=== PATIENT | male | born 1965 | race African-American/Black ===

== ENCOUNTER 2016-11-13 08:16 | Observation (INO) | payer OTHER ==
[~2016-11-13] VITALS: Ht 188 cm; Wt 110.4 kg
[~2016-11-13 08:16] MED LIST: ABREVA2 GM TP; ADULT LOW DOSE81 M1 PO; AMLODIPINE BESY10 MG PO; AMOXICILLIN500 M1 PO; ASPIR-TRIN325 M1 PO; Amoxicillin PO; BLOOD PRESSURE MEDS; CATAPRES0.2 MG PO; CLONIDINE HCL0.1 MG PO; CLONIDINE HCL0.2 MG PO; Cardizem CD,Cartia X PO; DOXEPIN HCL50 MG PO; DUONEB3 ML IH; ENDOCET 5-3251 EACH PO; Folvite PO; HABITROL,NICODE21 MG TD; HYDRALAZINE HCL25 MG PO; HYDROCHLOROTH12.5 M3 PO; HYDRODIURIL,O12.5 M2 PO; HYDROXYZINE HCL25 M1 PO; Habitrol,Nicoderm CQ TD; Hydrochlorothiazide PO; KEFLEX500 MG PO; LISINOPRIL-HCT1 EACH PO; LOPRESSOR100 M1 PO; Lisinopril PO; MICONAZOLE NITR30 GM TP; MICROZIDE12.5 M1 PO; MOBIC15 MG PO; NEOSPORIN + P14.2 GM TP; NIFEDIPINE ER30 MG PO; NOHOMEMEDS; NORVASC10 MG PO; NORVASC5 MG PO; PERCOCET 5/31 TABLET PO; PRINZIDE 20-121 EACH PO; PROAIR HFA8.5 GM IH; THIAMINE,VITAM100 MG PO; TRAMADOL HCL50 MG PO; TYLENOL EXTRA500 MG PO; VOLTAREN75 MG PO; ZESTRIL,PRINIVI10 M1 PO
[2016-11-13 08:58] LABS: HEMATOCRIT 41.3 % (38.0-50.0); MCH 25.9 PG (29.0-34.0); MCHC 34.6 G/DL (30.0-36.0); MCV 74.8 FL (86-99); PLATELET COUNT 196 K/uL (156-360); RBC DIS.WIDTH-CV 15.3 % (11.8-14.6); RBC DIS.WIDTH-SD 41.1 % (39-53); RED BLOOD COUNT 5.52 M/uL (4.00-5.50); WHITE BLOOD COUNT 10.9 K/uL (4.1-10.2)
[2016-11-13 09:07] LABS: CHLORIDE 100 mEq/L (99-109); POTASSIUM 3.2 mEq/L (3.7-5.4); SODIUM 135 mEq/L (136-147)
[2016-11-13 09:09] LABS: GLUCOSE 195 mg/dL (70-99)
[2016-11-13 09:11] LABS: ANION GAP 11 MEQ/L (2-14); TOTAL BILIRUBIN 1.1 mg/dL (0.0-1.0)
[2016-11-13 09:13] LABS: ALKALINE PHOSPHATASE 66 IU/L (3-129); GFR ESTIMATE (CALCULATED) > 59 mL/min/
[2016-11-13 09:14] LABS: UREA NITROGEN (BUN) 9 mg/dL (9-23)
[2016-11-13 09:16] LABS: LIPASE 41 U/L (1.0-51.0)
[2016-11-13 09:19] LABS: D-DIMER ELISA 0.43 mg/L FEU (< 0.57); TROP-I INTERPRETATION NEGATIVE; TROPONIN-I 0.02 ng/mL (0.0-0.30)
[2016-11-13 11:54] LABS: INFLUENZA A VIRAL ANTIGEN NEGATIVE; INFLUENZA B VIRAL ANTIGEN NEGATIVE
[2016-11-13 14:14] LABS: ADD MIUA? YES; BILIRUBIN NEGATIVE; BLOOD NEGATIVE; COLOR YELLOW ((YELLOW)); GLUCOSE (STRIP) NEGATIVE; KETONES NEGATIVE; LEUKOCYTES NEGATIVE; NITRITE NEGATIVE; PROTEIN (STRIP) 100; SPECIFIC GRAVITY 1.013 (1.000-1.030)
[2016-11-13 14:23] LABS: COCAINE PRESUMPTIVE POSITIVE (150 ng/mL); METHAMPHETAMINE NEGATIVE (500 ng/mL); PHENCYCLIDINE NEGATIVE (25 ng/mL); THC CANNABINOIDS PRESUMPTIVE POSITIVE (50 ng/mL)
[2016-11-13 14:24] LABS: ADD MEDTOX COMMENT Y; AMPHETAMINE NEGATIVE (500 ng/mL); BARBITURATES NEGATIVE (200 ng/mL); BENZODIAZEPINES NEGATIVE (150 ng/mL); INTERNAL CONTROLS VALID? YES; METHADONE NEGATIVE (200 ng/mL); OPIATES (MORPHINE) NEGATIVE (100 ng/mL); OXYCODONE NEGATIVE (100 ng/mL); PROPOXYPHENE NEGATIVE (300 ng/mL); TRICYCLIC ANTIDEPRESSANTS NEGATIVE (300 ng/mL)
[2016-11-13 14:30] LABS: BACTERIA RARE /HPF; EPITHELIAL CELLS 1+ /HPF; MUCUS NONE SEEN /LPF; RED BLOOD CELLS NONE SEEN /HPF (0-5); UCUL ADDED? NO; WHITE BLOOD CELLS NONE SEEN /HPF (0-5)
[2016-11-13 14:31] LABS: CASTS NONE SEEN /LPF; CRYSTALS NONE SEEN
[2016-11-13 15:36] LABS: HDL CHOLESTEROL 63 MG/DL (Desirable>=40); LDL CHOLESTEROL 109 mg/dL (Desirable<100); NON-HDL CHOLESTEROL 128 mg/dL (Desirable<160); TOTAL CHOLESTEROL 191 mg/dL (Desirable<200); TRIGLYCERIDES 93 MG/DL (Normal: <150)
[2016-11-13 15:43] LABS: TROP-I INTERPRETATION NEGATIVE; TROPONIN-I 0.02 ng/mL (0.0-0.30)
[2016-11-13 16:00] LABS: Estimated Average Glucose 111 mg/dL (70-123); HEMOGLOBIN A1c (GLYCOHEMOGLOB) 5.5 % HGB (Below 5.7)
[2016-11-13 19:12] VITALS: BP 141/93
[2016-11-14 02:02] VITALS: BP 126/80
[2016-11-14 04:41] VITALS: BP 126/84
[2016-11-14 07:17] LABS: ANION GAP 8 MEQ/L (2-14); CHLORIDE 102 MEQ/L (99-109); GFR ESTIMATE (CALCULATED) 48 mL/min/; POTASSIUM 3.5 MEQ/L (3.7-5.4); SAMPLE HEMOLYSIS CHECK 0; SAMPLE ICTERIC CHECK 0; SAMPLE LIPEMIA CHECK 0; SODIUM 139 MEQ/L (136-147); UREA NITROGEN (BUN) 17 mg/dL (9-23)
[2016-11-14 07:23] LABS: GLUCOSE 91 mg/dL (70-99)
[2016-11-14 09:02] VITALS: BP 125/73
[2016-11-14 11:32] LABS: TROP-I INTERPRETATION NEGATIVE; TROPONIN-I 0.01 ng/mL (0.0-0.30)
[2016-11-14 11:50] VITALS: BP 126/75
[2016-11-14] MEDS ORDERED: NICOTINE PATCH1 EAC2 TD (15:50)
[2016-11-14 16:42] VITALS: BP 133/80
[2016-11-14] MEDS ORDERED: CLONIDINE HCL0.2 MG PO (16:48)
[2016-11-14] MEDS ORDERED: AMLODIPINE BESY10 MG PO (16:48)
== END 2016-11-14 17:31 | disposition home or self-care (01) ==
LOC: EME 08:16 → 5WEST 14:25 → EDOF 14:25 → 5WEST 19:02
PROVIDERS: Emergency Medicine; Internal Medicine; Physician Assistant
DX: R07.89 Other chest pain (principal); F14.10 Cocaine abuse, uncomplicated; F10.20 Alcohol dependence, uncomplicated; I12.9 Hypertensive chronic kidney disease with stage 1 through stage 4 chronic kidney disease, or unspecified chronic kidney disease; N18.9 Chronic kidney disease, unspecified; F17.200 Nicotine dependence, unspecified, uncomplicated; Z91.19 Patient's noncompliance with other medical treatment and regimen; E87.6 Hypokalemia; Z82.49 Family history of ischemic heart disease and other diseases of the circulatory system
CPT/HCPCS: 71020; 71275; 80048; 80053; 80061; 81003; 83036; 83690; 84484; 84999; 85027; 85379; 87502; 87651 90; 93005; 93306; 93970; 94799; 99281; 99284; G0378; J1644; J2060

== ENCOUNTER 2017-01-24 17:58 | Emergency (ER) | payer SELFPAY ==
[~2017-01-24] VITALS: Ht 188 cm; Wt 110.9 kg
[~2017-01-24 17:58] MED LIST changes: +NICOTINE PATCH1 EAC2 TD
[2017-01-24 19:24] LABS: HEMATOCRIT 36.8 % (38.0-50.0); MCH 25.1 PG (29.0-34.0); MCHC 32.9 G/DL (30.0-36.0); MCV 76.3 FL (86-99); MEAN PLAT.VOLUME 10.1 uM^3 (9.0-12.4); PLATELET COUNT 229 K/uL (156-360); RBC DIS.WIDTH-CV 14.5 % (11.8-14.6); RBC DIS.WIDTH-SD 39.6 % (39-53); RED BLOOD COUNT 4.82 M/uL (4.00-5.50); WHITE BLOOD COUNT 7.9 K/uL (4.1-10.2)
[2017-01-24 19:36] LABS: CHLORIDE 111 mEq/L (99-109); SODIUM 142 mEq/L (136-147)
[2017-01-24 19:38] LABS: GLUCOSE 93 mg/dL (70-99)
[2017-01-24 19:39] LABS: ANION GAP 9 MEQ/L (2-14)
[2017-01-24 19:41] LABS: GFR ESTIMATE (CALCULATED) 55 mL/min/
[2017-01-24 19:42] LABS: UREA NITROGEN (BUN) 23 mg/dL (9-23)
[2017-01-24 19:49] LABS: TROP-I INTERPRETATION NEGATIVE; TROPONIN-I 0.01 ng/mL (0.0-0.30)
[2017-01-24] MEDS ORDERED: NORVASC10 MG PO (21:05)
[2017-01-24] MEDS ORDERED: CLONIDINE HCL0.2 MG PO (21:05)
[2017-01-24 21:25] VITALS: BP 186/114
== END 2017-01-24 21:35 | disposition home or self-care (01) ==
LOC: EME 17:58
PROVIDERS: Emergency Medicine
DX: M71.22 Synovial cyst of popliteal space [Baker], left knee (principal); I10 Essential (primary) hypertension; K21.9 Gastro-esophageal reflux disease without esophagitis; I73.9 Peripheral vascular disease, unspecified; F17.200 Nicotine dependence, unspecified, uncomplicated
CPT/HCPCS: 71020; 80048; 84484; 85027; 93005; 93971; 99281; 99285; G0480; J7030

== ENCOUNTER 2017-02-03 14:11 | Emergency (ER) | payer SELFPAY ==
[~2017-02-03] VITALS: Ht 188 cm; Wt 108.7 kg
[2017-02-03 17:14] LABS: EOSINOPHIL (%) 1.5 % (0-5); EOSINOPHIL COUNT 0.1 K/uL (0-0.3); HEMATOCRIT 39.1 % (38.0-50.0); IMMATURE GRANULOCYTE (%) 0.1 % (0.0-0.7); INSTRUMENT ABS NEUTROPHIL CT 6.3 K/uL; LYMPHOCYTE COUNT 1.8 K/uL (1.0-2.8); MCH 25.1 PG (29.0-34.0); MCV 76.1 FL (86-99); MEAN PLAT.VOLUME 9.2 uM^3 (9.0-12.4); MONOCYTE COUNT 0.6 K/uL (0-0.8); NEUTROPHIL COUNT 6.3 K/uL (1.8-6.4); PLATELET COUNT 280 K/uL (156-360); RBC DIS.WIDTH-CV 15.2 % (11.8-14.6); RBC DIS.WIDTH-SD 40.7 % (39-53); RED BLOOD COUNT 5.14 M/uL (4.00-5.50); WHITE BLOOD COUNT 8.9 K/uL (4.1-10.2)
[2017-02-03 17:23] LABS: CHLORIDE 107 mEq/L (99-109); POTASSIUM 3.7 mEq/L (3.7-5.4); SODIUM 141 mEq/L (136-147)
[2017-02-03 17:25] LABS: GLUCOSE 81 mg/dL (70-99)
[2017-02-03 17:27] LABS: ANION GAP 11 MEQ/L (2-14)
[2017-02-03 17:29] LABS: GFR ESTIMATE (CALCULATED) 59 mL/min/
[2017-02-03 17:30] LABS: UREA NITROGEN (BUN) 23 mg/dL (9-23)
[2017-02-03 17:35] LABS: TROP-I INTERPRETATION NEGATIVE; TROPONIN-I 0.04 ng/mL (0.0-0.30)
[2017-02-03] MEDS ORDERED: NORVASC10 MG PO (21:33)
[2017-02-03] MEDS ORDERED: CATAPRES0.2 MG PO (21:33)
[2017-02-03 22:02] VITALS: BP 164/93
== END 2017-02-03 22:04 | disposition home or self-care (01) ==
LOC: EME 14:11
PROVIDERS: Emergency Medicine
DX: I10 Essential (primary) hypertension (principal); M25.562 Pain in left knee; F13.239 Sedative, hypnotic or anxiolytic dependence with withdrawal, unspecified; W19.XXXA Unspecified fall, initial encounter; K21.9 Gastro-esophageal reflux disease without esophagitis; I73.9 Peripheral vascular disease, unspecified; F17.200 Nicotine dependence, unspecified, uncomplicated
CPT/HCPCS: 73564; 80048; 84484; 85025; 93005; 99281; 99285; J7030

== ENCOUNTER 2017-03-05 02:22 | Inpatient (IN) | payer OTHER ==
[~2017-03-05] VITALS: Ht 188 cm; Wt 113.7 kg
[2017-03-05 02:58] LABS: POTASSIUM 3.5 mEq/L (3.7-5.4)
[2017-03-05 03:04] LABS: BASOPHIL COUNT 0.1 K/uL (0-0.1); EOSINOPHIL (%) 2.6 % (0-5); EOSINOPHIL COUNT 0.2 K/uL (0-0.3); HEMATOCRIT 39.7 % (38.0-50.0); IMMATURE GRANULOCYTE (%) 0.4 % (0.0-0.7); INSTRUMENT ABS NEUTROPHIL CT 5.1 K/uL; LYMPHOCYTE COUNT 2.1 K/uL (1.0-2.8); MCH 25.3 PG (29.0-34.0); MCHC 32.7 G/DL (30.0-36.0); MCV 77.2 FL (86-99); MEAN PLAT.VOLUME 9.4 uM^3 (9.0-12.4); MONOCYTE (%) 7.8 % (3-12); MONOCYTE COUNT 0.6 K/uL (0-0.8); NEUTROPHIL COUNT 5.1 K/uL (1.8-6.4); NRBC (%) 0.4 /100 WBC (0-0); PLATELET COUNT 249 K/uL (156-360); RBC DIS.WIDTH-CV 15.2 % (11.8-14.6); RBC DIS.WIDTH-SD 42.1 % (39-53); RED BLOOD COUNT 5.14 M/uL (4.00-5.50); WHITE BLOOD COUNT 8.1 K/uL (4.1-10.2)
[2017-03-05 03:13] LABS: AMYLASE 64 IU/L (1-118); CHLORIDE 100 mEq/L (99-109); POTASSIUM 3.5 mEq/L (3.7-5.4); SODIUM 135 mEq/L (136-147)
[2017-03-05 03:15] LABS: GLUCOSE 98 mg/dL (70-99)
[2017-03-05 03:16] LABS: ANION GAP 16 MEQ/L (2-14)
[2017-03-05 03:18] LABS: SERUM ETHYL ALCOHOL 168 mg/dL
[2017-03-05 03:19] LABS: GFR ESTIMATE (CALCULATED) 30 mL/min/
[2017-03-05 03:20] LABS: UREA NITROGEN (BUN) 16 mg/dL (9-23)
[2017-03-05 03:22] LABS: LIPASE 44 U/L (1.0-51.0)
[2017-03-05 05:22] LABS: ADD MIUA? YES; BILIRUBIN NEGATIVE; BLOOD SMALL; COLOR COLORLESS ((YELLOW)); GLUCOSE (STRIP) NEGATIVE; KETONES NEGATIVE; LEUKOCYTES NEGATIVE; NITRITE NEGATIVE; PROTEIN (STRIP) 30; SPECIFIC GRAVITY 1.003 (1.000-1.030); UROBILINOGEN 0.2 MG/DL (0.2-1.0)
[2017-03-05 05:31] LABS: AMPHETAMINE NEGATIVE (500 ng/mL); BARBITURATES NEGATIVE (200 ng/mL); BENZODIAZEPINES NEGATIVE (150 ng/mL); COCAINE PRESUMPTIVE POSITIVE (150 ng/mL); INTERNAL CONTROLS VALID? YES; METHADONE NEGATIVE (200 ng/mL); METHAMPHETAMINE NEGATIVE (500 ng/mL); OPIATES (MORPHINE) PRESUMPTIVE POSITIVE (100 ng/mL); OXYCODONE NEGATIVE (100 ng/mL); PHENCYCLIDINE NEGATIVE (25 ng/mL); PROPOXYPHENE NEGATIVE (300 ng/mL); THC CANNABINOIDS NEGATIVE (50 ng/mL); TRICYCLIC ANTIDEPRESSANTS NEGATIVE (300 ng/mL)
[2017-03-05 05:32] LABS: ADD MEDTOX COMMENT Y
[2017-03-05 06:04] LABS: BACTERIA NONE SEEN /HPF; EPITHELIAL CELLS NONE SEEN /HPF; MUCUS NONE SEEN /LPF; RED BLOOD CELLS 0-5 /HPF (0-5); UCUL ADDED? NO; WHITE BLOOD CELLS NONE SEEN /HPF (0-5)
[2017-03-05 12:46] LABS: HEMATOCRIT 36.7 % (38.0-50.0); MCH 25.3 PG (29.0-34.0); MCV 76.6 FL (86-99); MEAN PLAT.VOLUME 9.8 uM^3 (9.0-12.4); PLATELET COUNT 212 K/uL (156-360); RBC DIS.WIDTH-CV 14.9 % (11.8-14.6); RBC DIS.WIDTH-SD 40.8 % (39-53); RED BLOOD COUNT 4.79 M/uL (4.00-5.50); WHITE BLOOD COUNT 7.5 K/uL (4.1-10.2)
[2017-03-05 12:56] LABS: CHLORIDE 105 mEq/L (99-109); POTASSIUM 3.6 mEq/L (3.7-5.4); SODIUM 138 mEq/L (136-147)
[2017-03-05 12:57] LABS: GLUCOSE 102 mg/dL (70-99)
[2017-03-05 12:59] LABS: ANION GAP 10 MEQ/L (2-14)
[2017-03-05 13:02] LABS: UREA NITROGEN (BUN) 13 mg/dL (9-23)
[2017-03-05 13:04] LABS: TOTAL CK 2369 IU/L (1-294)
[2017-03-05 13:11] LABS: CREATINE KINASE 2369 IU/L (1-294); GFR ESTIMATE (CALCULATED) 43 mL/min/
[2017-03-05 15:11] LABS: CK-MB 5.5 ng/mL (0.0-4.9)
[2017-03-05 16:30] VITALS: BP 161/70
[2017-03-05 16:40] VITALS: BP 174/90
[2017-03-05 19:50] VITALS: BP 177/108
[2017-03-06 00:12] VITALS: BP 158/91
[2017-03-06 06:31] LABS: HEMATOCRIT 35.4 % (38.0-50.0); MCH 25.5 PG (29.0-34.0); MCHC 32.5 G/DL (30.0-36.0); MCV 78.5 FL (86-99); MEAN PLAT.VOLUME 10.6 uM^3 (9.0-12.4); PLATELET COUNT 212 K/uL (156-360); RBC DIS.WIDTH-CV 15.1 % (11.8-14.6); RBC DIS.WIDTH-SD 43.1 % (39-53); RED BLOOD COUNT 4.51 M/uL (4.00-5.50); WHITE BLOOD COUNT 7.1 K/uL (4.1-10.2)
[2017-03-06 07:10] LABS: ANION GAP 11 MEQ/L (2-14); CHLORIDE 104 MEQ/L (99-109); GFR ESTIMATE (CALCULATED) 48 mL/min/; GLUCOSE 100 mg/dL (70-99); POTASSIUM 3.9 MEQ/L (3.7-5.4); SAMPLE HEMOLYSIS CHECK 0; SAMPLE ICTERIC CHECK 0; SAMPLE LIPEMIA CHECK 0; SODIUM 139 MEQ/L (136-147); UREA NITROGEN (BUN) 17 mg/dL (9-23)
[2017-03-06 07:12] LABS: CREATINE KINASE 1448 IU/L (1-294)
[2017-03-06 08:09] VITALS: BP 178/110
[2017-03-06 11:52] VITALS: BP 139/74
[2017-03-06 15:25] LABS: APPEARANCE HAZY-YELLOW
[2017-03-06 15:30] LABS: RED CELL COUNT 0 /MM^3 (0-1)
[2017-03-06 15:31] LABS: MONONUCLEAR WBC'S 7 %; POLYNUCLEAR WBC'S 93 % (0-25); SYNOVIAL FLUID EOSINOPHILS 0 % (0-25); WHITE CELL COUNT 32936 /MM^3 (0-200.0)
[2017-03-06 16:28] VITALS: BP 169/99
[2017-03-06 18:08] LABS: ALKALINE PHOSPHATASE 65 IU/L (3-129); DIRECT BILIRUBIN 0.1 mg/dL (0.0-0.3); TOTAL BILIRUBIN 0.8 MG/DL (0.0-1.0)
[2017-03-06 20:22] VITALS: BP 163/90
[2017-03-07 00:32] VITALS: BP 157/83
[2017-03-07 04:33] VITALS: BP 147/81
[2017-03-07 07:24] LABS: CRYSTALS NO CRYSTALS SEEN
[2017-03-07 07:54] LABS: HEMATOCRIT 31.9 % (38.0-50.0); MCH 25.6 PG (29.0-34.0); MCHC 32.3 G/DL (30.0-36.0); MCV 79.4 FL (86-99); MEAN PLAT.VOLUME 10.5 uM^3 (9.0-12.4); PLATELET COUNT 186 K/uL (156-360); RBC DIS.WIDTH-SD 43.8 % (39-53); RED BLOOD COUNT 4.02 M/uL (4.00-5.50); WHITE BLOOD COUNT 7.4 K/uL (4.1-10.2)
[2017-03-07 08:25] VITALS: BP 167/84
[2017-03-07 08:26] LABS: ANION GAP 9 MEQ/L (2-14); CHLORIDE 104 MEQ/L (99-109); GFR ESTIMATE (CALCULATED) 45 mL/min/; GLUCOSE 91 mg/dL (70-99); POTASSIUM 3.8 MEQ/L (3.7-5.4); SAMPLE HEMOLYSIS CHECK 0; SAMPLE ICTERIC CHECK 0; SAMPLE LIPEMIA CHECK 0; SODIUM 139 MEQ/L (136-147); UREA NITROGEN (BUN) 14 mg/dL (9-23)
[2017-03-07 09:05] LABS: CREATINE KINASE 828 IU/L (1-294); TOTAL CK 828 IU/L (1-294)
[2017-03-07 10:39] LABS: CK-MB 0.9 ng/mL (0.0-4.9)
[2017-03-07 12:15] VITALS: BP 176/101
[2017-03-07 15:44] VITALS: BP 180/103
[2017-03-07 19:48] VITALS: BP 186/104
[2017-03-08] VITALS (7 sets, daily range): BP systolic 108–178; BP diastolic 84–107
[2017-03-08 08:15] LABS: EOSINOPHIL (%) 0.5 % (0-5); HEMATOCRIT 27.5 % (38.0-50.0); IMMATURE GRANULOCYTE (%) 0.5 % (0.0-0.7); INSTRUMENT ABS NEUTROPHIL CT 5.8 K/uL; LYMPHOCYTE COUNT 1.2 K/uL (1.0-2.8); MCH 25.9 PG (29.0-34.0); MCHC 33.1 G/DL (30.0-36.0); MCV 78.3 FL (86-99); MONOCYTE (%) 11.1 % (3-12); MONOCYTE COUNT 0.9 K/uL (0-0.8); NEUTROPHIL (%) 72.2 % (45-76); NEUTROPHIL COUNT 5.8 K/uL (1.8-6.4); PLATELET COUNT 167 K/uL (156-360); RBC DIS.WIDTH-CV 14.7 % (11.8-14.6); RBC DIS.WIDTH-SD 41.8 % (39-53); RED BLOOD COUNT 3.51 M/uL (4.00-5.50)
[2017-03-08 09:16] LABS: ANION GAP 10 MEQ/L (2-14); CHLORIDE 103 MEQ/L (99-109); CREATINE KINASE 637 IU/L (1-294); GFR ESTIMATE (CALCULATED) 43 mL/min/; GLUCOSE 130 mg/dL (70-99); POTASSIUM 3.5 MEQ/L (3.7-5.4); SAMPLE HEMOLYSIS CHECK 0; SAMPLE ICTERIC CHECK 0; SAMPLE LIPEMIA CHECK 0; SODIUM 138 MEQ/L (136-147); TOTAL CK 637 IU/L (1-294); UREA NITROGEN (BUN) 15 mg/dL (9-23)
[2017-03-08 10:14] LABS: CK-MB 1.2 ng/mL (0.0-4.9)
[2017-03-09 04:33] VITALS: BP 172/95
[2017-03-09 07:33] VITALS: BP 165/88
[2017-03-09 08:36] LABS: ANION GAP 10 MEQ/L (2-14); CHLORIDE 102 MEQ/L (99-109); GFR ESTIMATE (CALCULATED) 45 mL/min/; GLUCOSE 100 mg/dL (70-99); POTASSIUM 3.6 MEQ/L (3.7-5.4); SAMPLE HEMOLYSIS CHECK 0; SAMPLE ICTERIC CHECK 0; SAMPLE LIPEMIA CHECK 0; SODIUM 137 MEQ/L (136-147); UREA NITROGEN (BUN) 16 mg/dL (9-23)
[2017-03-09 08:40] LABS: HEMATOCRIT 29.2 % (38.0-50.0); MCH 25.7 PG (29.0-34.0); MCHC 32.9 G/DL (30.0-36.0); MCV 78.1 FL (86-99); MEAN PLAT.VOLUME 10.3 uM^3 (9.0-12.4); PLATELET COUNT 234 K/uL (156-360); RBC DIS.WIDTH-CV 14.7 % (11.8-14.6); RBC DIS.WIDTH-SD 42.1 % (39-53); RED BLOOD COUNT 3.74 M/uL (4.00-5.50); WHITE BLOOD COUNT 8.5 K/uL (4.1-10.2)
[2017-03-09 10:58] VITALS: BP 117/76
[2017-03-09 16:17] VITALS: BP 164/84
[2017-03-09 19:40] VITALS: BP 168/90
[2017-03-10] VITALS (7 sets, daily range): BP systolic 139–163; BP diastolic 81–93
[2017-03-10 06:52] LABS: HEMATOCRIT 28.2 % (38.0-50.0); MCH 25.6 PG (29.0-34.0); MCHC 32.6 G/DL (30.0-36.0); MCV 78.6 FL (86-99); MEAN PLAT.VOLUME 10.3 uM^3 (9.0-12.4); PLATELET COUNT 258 K/uL (156-360); RBC DIS.WIDTH-CV 14.6 % (11.8-14.6); RBC DIS.WIDTH-SD 41.9 % (39-53); RED BLOOD COUNT 3.59 M/uL (4.00-5.50); WHITE BLOOD COUNT 7.6 K/uL (4.1-10.2)
[2017-03-10 07:21] LABS: ANION GAP 11 MEQ/L (2-14); CHLORIDE 104 MEQ/L (99-109); GFR ESTIMATE (CALCULATED) 43 mL/min/; GLUCOSE 98 mg/dL (70-99); POTASSIUM 4.3 MEQ/L (3.7-5.4); SAMPLE HEMOLYSIS CHECK 0; SAMPLE ICTERIC CHECK 0; SAMPLE LIPEMIA CHECK 0; SODIUM 139 MEQ/L (136-147); UREA NITROGEN (BUN) 22 mg/dL (9-23)
[2017-03-10 10:54] LABS: ADD MIUA? YES; BILIRUBIN NEGATIVE; BLOOD NEGATIVE; COLOR YELLOW ((YELLOW)); GLUCOSE (STRIP) NEGATIVE; KETONES NEGATIVE; LEUKOCYTES NEGATIVE; NITRITE NEGATIVE; PROTEIN (STRIP) 100; SPECIFIC GRAVITY 1.008 (1.000-1.030)
[2017-03-10 11:00] LABS: BACTERIA NONE SEEN /HPF; EPITHELIAL CELLS NONE SEEN /HPF; MUCUS NONE SEEN /LPF; RED BLOOD CELLS 0-5 /HPF (0-5); WHITE BLOOD CELLS 0-5 /HPF (0-5)
[2017-03-11 03:56] VITALS: BP 141/83
[2017-03-11 07:36] VITALS: BP 145/73
[2017-03-11 07:51] LABS: ANION GAP 11 MEQ/L (2-14); CHLORIDE 102 MEQ/L (99-109); GFR ESTIMATE (CALCULATED) 41 mL/min/; GLUCOSE 96 mg/dL (70-99); POTASSIUM 4.1 MEQ/L (3.7-5.4); SAMPLE HEMOLYSIS CHECK 0; SAMPLE ICTERIC CHECK 0; SAMPLE LIPEMIA CHECK 0; SODIUM 139 MEQ/L (136-147); UREA NITROGEN (BUN) 24 mg/dL (9-23)
[2017-03-11 07:52] LABS: ANION GAP 11 MEQ/L (2-14); CHLORIDE 101 MEQ/L (99-109); GFR ESTIMATE (CALCULATED) 41 mL/min/; GLUCOSE 96 mg/dL (70-99); POTASSIUM 4.2 MEQ/L (3.7-5.4); SAMPLE HEMOLYSIS CHECK 0; SAMPLE ICTERIC CHECK 0; SAMPLE LIPEMIA CHECK 0; SODIUM 138 MEQ/L (136-147); UREA NITROGEN (BUN) 24 mg/dL (9-23)
[2017-03-11 11:24] VITALS: BP 161/82
[2017-03-11 15:15] VITALS: BP 158/80; BP 58/80
[2017-03-11 19:43] VITALS: BP 134/84
[2017-03-12] VITALS (7 sets, daily range): BP systolic 121–171; BP diastolic 73–92
[2017-03-12 07:10] LABS: HEMATOCRIT 26.9 % (38.0-50.0); MCH 26.2 PG (29.0-34.0); MCHC 33.5 G/DL (30.0-36.0); MCV 78.2 FL (86-99); MEAN PLAT.VOLUME 9.9 uM^3 (9.0-12.4); RBC DIS.WIDTH-CV 14.5 % (11.8-14.6); RBC DIS.WIDTH-SD 40.8 % (39-53); RED BLOOD COUNT 3.44 M/uL (4.00-5.50)
[2017-03-12 07:18] LABS: PLATELET COUNT 362 K/uL (156-360)
[2017-03-12 07:25] LABS: ANION GAP 10 MEQ/L (2-14); CHLORIDE 102 MEQ/L (99-109); GFR ESTIMATE (CALCULATED) 45 mL/min/; GLUCOSE 99 mg/dL (70-99); SAMPLE HEMOLYSIS CHECK 0; SAMPLE ICTERIC CHECK 0; SAMPLE LIPEMIA CHECK 0; SODIUM 138 MEQ/L (136-147); UREA NITROGEN (BUN) 26 mg/dL (9-23)
[2017-03-13 04:39] VITALS: BP 139/78
[2017-03-13 04:46] VITALS: BP 158/78
[2017-03-13 07:30] LABS: ANION GAP 10 MEQ/L (2-14); CHLORIDE 103 MEQ/L (99-109); GFR ESTIMATE (CALCULATED) 43 mL/min/; GLUCOSE 96 mg/dL (70-99); POTASSIUM 4.1 MEQ/L (3.7-5.4); SAMPLE HEMOLYSIS CHECK 0; SAMPLE ICTERIC CHECK 0; SAMPLE LIPEMIA CHECK 0; SODIUM 138 MEQ/L (136-147); UREA NITROGEN (BUN) 28 mg/dL (9-23)
[2017-03-13 08:24] VITALS: BP 141/96
[2017-03-13 13:02] VITALS: BP 146/82
[2017-03-13] MEDS ORDERED: CEPHALEXIN500 MG PO (14:19)
[2017-03-13] MEDS ORDERED: SENNA PLUS TAB1 EACH PO (14:20)
[2017-03-13] MEDS ORDERED: BISACODYL5 MG PO (14:21)
[2017-03-13] MEDS ORDERED: Thiamine,Vitamin B1 PO (14:21)
[2017-03-13] MEDS ORDERED: FOLIC ACID1 MG PO (14:21)
[2017-03-13] MEDS ORDERED: LOVENOX40 MG/0.4 SC (14:22)
[2017-03-13] MEDS ORDERED: OXYCODONE HCL5 MG PO (14:22)
== END 2017-03-13 16:11 | DRG 493 ==
LOC: TRA 02:22 → EDOF 06:27 → 3EAST 06:27
PROVIDERS: Emergency Medicine; Hospitalist; Internal Medicine; Internal Medicine Nephrology; Physician Assistant; Physician Assistant Surgical
PROC: 0QHG36Z Insertion of Intramedullary Internal Fixation Device into Right Tibia, Percutaneous Approach (ICD-10-PCS; principal; 2017-03-08)
PROC: 0QSG3ZZ Reposition Right Tibia, Percutaneous Approach (ICD-10-PCS; 2017-03-08)
DX: S82.241A Displaced spiral fracture of shaft of right tibia, initial encounter for closed fracture (principal); S70.311A Abrasion, right thigh, initial encounter; S50.812A Abrasion of left forearm, initial encounter; N17.9 Acute kidney failure, unspecified; F10.10 Alcohol abuse, uncomplicated; M62.82 Rhabdomyolysis; M79.81 Nontraumatic hematoma of soft tissue; I10 Essential (primary) hypertension; E87.6 Hypokalemia; R50.9 Fever, unspecified; W17.89XA Other fall from one level to another, initial encounter; K21.9 Gastro-esophageal reflux disease without esophagitis; F41.9 Anxiety disorder, unspecified; F32.9 Major depressive disorder, single episode, unspecified; F17.210 Nicotine dependence, cigarettes, uncomplicated; F10.229 Alcohol dependence with intoxication, unspecified; F14.10 Cocaine abuse, uncomplicated; N18.3 Chronic kidney disease, stage 3 (moderate); S82.831A Other fracture of upper and lower end of right fibula, initial encounter for closed fracture; Y92.89 Other specified places as the place of occurrence of the external cause; R73.03 Prediabetes; I12.9 Hypertensive chronic kidney disease with stage 1 through stage 4 chronic kidney disease, or unspecified chronic kidney disease; Y99.9 Unspecified external cause status; Z91.14 Patient's other noncompliance with medication regimen; Y93.39 Activity, other involving climbing, rappelling and jumping off
CPT/HCPCS: 70450; 71020; 71250; 72125; 72128; 72131; 73502; 73552; 73560; 73590; 73650; 74176; 76000; 76770; 80047; 80048; 80048 91; 80069; 80076; 81003; 82150; 82550; 82553; 83690; 83735; 83930; 83935; 84300; 84999; 85025; 85027; 86900; 86901; 87040; 87086; 87205; 89051; 89060; 93971; 97530 GP; 99281; 99285; C1713; G0480; J0360; J0690; J1100; J1170; J1200; J1644; J1650; J2175; J2250; J2270; J2405; J2710; J3010; J3411; J7030; J7042; J7120

== ENCOUNTER 2017-03-26 08:59 | Observation (INO) | payer OTHER ==
[~2017-03-26] VITALS: Ht 188 cm; Wt 107.0 kg
[~2017-03-26 08:59] MED LIST changes: +BISACODYL5 MG PO; +CEPHALEXIN500 MG PO; +FOLIC ACID1 MG PO; +LOVENOX40 MG/0.4 SC; +OXYCODONE HCL5 MG PO; +SENNA PLUS TAB1 EACH PO; +Thiamine,Vitamin B1 PO
[2017-03-26 10:44] LABS: HEMATOCRIT 31.4 % (38.0-50.0); MCH 24.7 PG (29.0-34.0); MCHC 32.2 G/DL (30.0-36.0); MCV 76.8 FL (86-99); MEAN PLAT.VOLUME 9.3 uM^3 (9.0-12.4); PLATELET COUNT 390 K/uL (156-360); RBC DIS.WIDTH-CV 14.7 % (11.8-14.6); RBC DIS.WIDTH-SD 40.8 % (39-53); RED BLOOD COUNT 4.09 M/uL (4.00-5.50); WHITE BLOOD COUNT 8.1 K/uL (4.1-10.2)
[2017-03-26 11:27] LABS: ANION GAP 9 MEQ/L (2-14); CHLORIDE 108 MEQ/L (99-109); GFR ESTIMATE (CALCULATED) 31 mL/min/; GLUCOSE 114 mg/dL (70-99); POTASSIUM 4.1 MEQ/L (3.7-5.4); SAMPLE HEMOLYSIS CHECK 0; SAMPLE ICTERIC CHECK 0; SAMPLE LIPEMIA CHECK 0; SODIUM 141 MEQ/L (136-147); UREA NITROGEN (BUN) 26 mg/dL (9-23)
[2017-03-26 11:35] LABS: ADD MIUA? YES; BILIRUBIN NEGATIVE; BLOOD SMALL; COLOR YELLOW ((YELLOW)); GLUCOSE (STRIP) NEGATIVE; KETONES NEGATIVE; LEUKOCYTES TRACE; NITRITE NEGATIVE; PROTEIN (STRIP) 100; SPECIFIC GRAVITY 1.012 (1.000-1.030); UROBILINOGEN 0.2 MG/DL (0.2-1.0)
[2017-03-26 11:38] LABS: EOSINOPHIL (%) 3.8 % (0-5); EOSINOPHIL COUNT 0.3 K/uL (0-0.3); IMMATURE GRANULOCYTE (%) 0.4 % (0.0-0.7); INSTRUMENT ABS NEUTROPHIL CT 5.4 K/uL; MONOCYTE (%) 5.5 % (3-12); MONOCYTE COUNT 0.5 K/uL (0-0.8); NEUTROPHIL (%) 65.8 % (45-76); NEUTROPHIL COUNT 5.4 K/uL (1.8-6.4)
[2017-03-26 11:41] LABS: BACTERIA NONE SEEN /HPF; EPITHELIAL CELLS RARE /HPF; HYALINE CASTS 0-5 /LPF; MUCUS TRACE /LPF; UCUL ADDED? NO; WHITE BLOOD CELLS 0-5 /HPF (0-5)
[2017-03-26 13:21] LABS: TREPONEMA ANTIBODY NEGATIVE (NEGATIVE)
[2017-03-26 16:39] VITALS: BP 175/92
[2017-03-26] MEDS ORDERED: OXYCODONE HCL10 MG PO (17:04)
[2017-03-26] MEDS ORDERED: OXYCODONE HCL5 MG PO (17:08)
[2017-03-26] MEDS ORDERED: ASPIR-LOW81 MG PO (18:35)
[2017-03-26] MEDS ORDERED: BISACODYL5 MG PO (18:36)
[2017-03-26] MEDS ORDERED: FERROUS SULFAT325 MG PO (18:38)
[2017-03-26] MEDS ORDERED: THIAMINE HCL100 MG PO (18:38)
[2017-03-26] MEDS ORDERED: BACTRIM,SEPT1 TABLET PO (18:39)
[2017-03-26 20:00] VITALS: BP 151/91
[2017-03-26 23:58] VITALS: BP 136/73
[2017-03-27 04:08] VITALS: BP 120/74
[2017-03-27 06:55] LABS: HEMATOCRIT 28.9 % (38.0-50.0); MCH 25.7 PG (29.0-34.0); MCHC 32.9 G/DL (30.0-36.0); MCV 78.1 FL (86-99); MEAN PLAT.VOLUME 9.9 uM^3 (9.0-12.4); PLATELET COUNT 377 K/uL (156-360); RBC DIS.WIDTH-CV 14.9 % (11.8-14.6); RBC DIS.WIDTH-SD 42.5 % (39-53)
[2017-03-27 07:21] LABS: ANION GAP 9 MEQ/L (2-14); CHLORIDE 107 MEQ/L (99-109); GFR ESTIMATE (CALCULATED) 34 mL/min/; POTASSIUM 4.4 MEQ/L (3.7-5.4); SAMPLE HEMOLYSIS CHECK 0; SAMPLE ICTERIC CHECK 0; SAMPLE LIPEMIA CHECK 0; SODIUM 140 MEQ/L (136-147); UREA NITROGEN (BUN) 27 mg/dL (9-23)
[2017-03-27 07:30] LABS: GLUCOSE 85 mg/dL (70-99)
[2017-03-27 09:21] VITALS: BP 169/98
[2017-03-27 11:49] VITALS: BP 132/75
[2017-03-27] MEDS ORDERED: FLUCONAZOLE200 MG PO (12:44)
[2017-03-27] MEDS ORDERED: VALACYCLOVIR500 MG PO ×3 (12:45→15:21)
[2017-03-27] MEDS ORDERED: DOXYCYCLINE HY100 MG PO (12:46)
[2017-03-27 12:58] LABS: HBSG INDEX 0.23; HPCA INDEX 0.13
[2017-03-28 13:36] LABS: CHLAMYDIA TRACHOMATIS NEGATIVE; NEISSERIA GONORRHOEAE NEGATIVE
== END 2017-03-27 18:26 ==
LOC: EME 08:59 → EDOF 12:23 → 5WEST 12:23 → EDOF 12:23 → 5WEST 16:04
PROVIDERS: Emergency Medicine; Internal Medicine; Internal Medicine Infectious Disease
DX: N48.5 Ulcer of penis (principal); N17.9 Acute kidney failure, unspecified; R33.9 Retention of urine, unspecified; Z91.14 Patient's other noncompliance with medication regimen; I12.9 Hypertensive chronic kidney disease with stage 1 through stage 4 chronic kidney disease, or unspecified chronic kidney disease; N18.3 Chronic kidney disease, stage 3 (moderate); F14.10 Cocaine abuse, uncomplicated; F10.20 Alcohol dependence, uncomplicated; F17.210 Nicotine dependence, cigarettes, uncomplicated
CPT/HCPCS: 73590; 80048; 81003; 85025; 85027; 86780; 86803; 86812 90; 87040; 87070; 87254; 87340; 87491; 87591; 99281; 99285; G0378; J0696; J1644; J2270; J7030; J7050

== ENCOUNTER 2017-05-29 14:08 | Emergency (ER) | payer OTHER ==
[~2017-05-29] VITALS: Ht 188 cm; Wt 111.3 kg
[~2017-05-29 14:08] MED LIST changes: +ASPIR-LOW81 MG PO; +BACTRIM,SEPT1 TABLET PO; +DOXYCYCLINE HY100 MG PO; +FERROUS SULFAT325 MG PO; +FLUCONAZOLE200 MG PO; +OXYCODONE HCL10 MG PO; +THIAMINE HCL100 MG PO; +VALACYCLOVIR500 MG PO
[2017-05-29 16:11] VITALS: BP 137/93
== END 2017-05-29 17:28 | disposition home or self-care (01) ==
LOC: EME 14:08
DX: R50.9 Fever, unspecified (principal); M79.1 Myalgia; J02.9 Acute pharyngitis, unspecified; I10 Essential (primary) hypertension; F17.200 Nicotine dependence, unspecified, uncomplicated
CPT/HCPCS: 99281; 99284; J0561; J1100; J1885

== ENCOUNTER 2017-10-25 16:01 | Emergency (ER) | payer OTHER ==
[~2017-10-25] VITALS: Ht 188 cm; Wt 110.1 kg
[2017-10-25] MEDS ORDERED: ULTRAM50 MG PO (17:52)
[2017-10-25 19:26] VITALS: BP 164/92
== END 2017-10-25 19:30 | disposition home or self-care (01) ==
LOC: EME 16:01
DX: S42.032A Displaced fracture of lateral end of left clavicle, initial encounter for closed fracture (principal); S43.402A Unspecified sprain of left shoulder joint, initial encounter; I10 Essential (primary) hypertension; I73.9 Peripheral vascular disease, unspecified; N18.3 Chronic kidney disease, stage 3 (moderate); K21.9 Gastro-esophageal reflux disease without esophagitis; F32.9 Major depressive disorder, single episode, unspecified; F41.9 Anxiety disorder, unspecified; F17.200 Nicotine dependence, unspecified, uncomplicated; Z88.6 Allergy status to analgesic agent; Y04.2XXA Assault by strike against or bumped into by another person, initial encounter
CPT/HCPCS: 71045; 73030; 73060; 99281; 99285

== ENCOUNTER 2018-01-05 09:57 | Emergency (ER) | payer OTHER ==
[~2018-01-05] VITALS: Ht 188 cm; Wt 113.6 kg
[~2018-01-05 09:57] MED LIST changes: +ULTRAM50 MG PO
[2018-01-05] MEDS ORDERED: PEN-VEE K,VEET500 MG PO (12:18)
[2018-01-05] MEDS ORDERED: ULTRAM50 MG PO (12:20)
[2018-01-05 12:28] VITALS: BP 157/95
== END 2018-01-05 12:29 | disposition home or self-care (01) ==
LOC: EME 09:57
PROC: 3E0T3BZ Introduction of Anesthetic Agent into Peripheral Nerves and Plexi, Percutaneous Approach (ICD-10-PCS; principal; 2018-01-05)
DX: K08.89 Other specified disorders of teeth and supporting structures (principal); R68.83 Chills (without fever); K02.9 Dental caries, unspecified; K03.81 Cracked tooth; I12.9 Hypertensive chronic kidney disease with stage 1 through stage 4 chronic kidney disease, or unspecified chronic kidney disease; N18.3 Chronic kidney disease, stage 3 (moderate); F17.200 Nicotine dependence, unspecified, uncomplicated
CPT/HCPCS: 99281; 99284; S0020

== ENCOUNTER 2018-03-13 10:08 | Observation (INO) | payer OTHER ==
[~2018-03-13] VITALS: Ht 182.9 cm; Wt 110.6 kg
[~2018-03-13 10:08] MED LIST changes: +PEN-VEE K,VEET500 MG PO
[2018-03-13 10:42] LABS: HEMATOCRIT 39.4 % (38.0-50.0); HEMOGLOBIN 13.5 G/DL (12.5-16.6); MCH 26.9 PG (29.0-34.0); MCHC 34.3 G/DL (30.0-36.0); MCV 78.5 FL (86-99); PLATELET COUNT 229 K/uL (156-360); RBC DIS.WIDTH-CV 15.4 % (11.8-14.6); RBC DIS.WIDTH-SD 43.2 % (39-53); RED BLOOD COUNT 5.02 M/uL (4.00-5.50); WHITE BLOOD COUNT 11.6 K/uL (4.1-10.2)
[2018-03-13 10:48] LABS: INTER. NORMALIZED RATIO 1.1
[2018-03-13 10:53] LABS: CHLORIDE 103 mEq/L (99-109); POTASSIUM 3.5 mEq/L (3.7-5.4); SODIUM 139 mEq/L (136-147)
[2018-03-13 10:54] LABS: GLUCOSE 89 mg/dL (70-99)
[2018-03-13 10:58] LABS: CREATININE 2.4 mg/dL (0.6-1.3); GFR ESTIMATE (CALCULATED) 37 mL/min/ (58.99-99999)
[2018-03-13 10:59] LABS: UREA NITROGEN (BUN) 26 mg/dL (9-23)
[2018-03-13 11:21] LABS: SERUM ETHYL ALCOHOL 24 mg/dL
[2018-03-13] MEDS ORDERED: OXYCODONE-APAP1 EACH PO (12:05)
[2018-03-13] MEDS ORDERED: VALSARTAN-HCTZ1 EAC1 PO (12:05)
[2018-03-13] MEDS ORDERED: FOLIC ACID1 MG PO (12:12)
[2018-03-13] MEDS ORDERED: VITAMIN D32000 UNI1 PO (12:12)
[2018-03-13 13:37] VITALS: BP 143/89
[2018-03-13 15:20] VITALS: BP 163/95
[2018-03-13 15:20] LABS: AMPHETAMINE NEGATIVE (500 ng/mL); BARBITURATES NEGATIVE (200 ng/mL); BENZODIAZEPINES NEGATIVE (150 ng/mL); BUPRENORPHINE NEGATIVE (10 ng/mL); COCAINE PRESUMPTIVE POSITIVE (150 ng/mL); METHADONE NEGATIVE (200 ng/mL); METHAMPHETAMINE NEGATIVE (500 ng/mL); OPIATES (MORPHINE) PRESUMPTIVE POSITIVE (100 ng/mL); OXYCODONE PRESUMPTIVE POSITIVE (100 ng/mL); PHENCYCLIDINE NEGATIVE (25 ng/mL); PROPOXYPHENE NEGATIVE (300 ng/mL); THC CANNABINOIDS PRESUMPTIVE POSITIVE (50 ng/mL); TRICYCLIC ANTIDEPRESSANTS NEGATIVE (300 ng/mL)
[2018-03-13 16:56] LABS: CHLORIDE 104 MEQ/L (99-109); CREATININE 2.5 MG/DL (0.6-1.3); GFR ESTIMATE (CALCULATED) 35 mL/min/ (58.99-99999); SODIUM 135 MEQ/L (136-147); UREA NITROGEN (BUN) 32 mg/dL (9-23)
[2018-03-13 17:05] LABS: GLUCOSE 145 mg/dL (70-99); POTASSIUM 4.6 MEQ/L (3.7-5.4)
[2018-03-13 17:32] LABS: CREATINE KINASE 319 IU/L (1-294); TOTAL CK 319 IU/L (1-294)
[2018-03-13] MEDS ORDERED: NORVASC10 MG PO (17:42)
[2018-03-13 18:04] LABS: TROP-I INTERPRETATION NEGATIVE; TROPONIN-I 0.09 ng/mL (0.0-0.30)
[2018-03-13 19:08] LABS: CKMB RELATIVE INDEX 1.8 (0.0-3.9)
[2018-03-13 19:11] LABS: CK-MB 5.9 ng/mL (0.0-4.9)
[2018-03-13 19:36] VITALS: BP 169/76
== END 2018-03-13 19:39 | disposition home or self-care (01) ==
LOC: EME 10:08 → CANRESERV 12:14 → EDOF 12:14 → ENRESERV 12:14 → 4SOUTH 13:16
PROVIDERS: Emergency Medicine; Nurse Practitioner Family
DX: G92 Toxic encephalopathy (principal); T40.605A Adverse effect of unspecified narcotics, initial encounter; N17.9 Acute kidney failure, unspecified; E87.6 Hypokalemia; I12.9 Hypertensive chronic kidney disease with stage 1 through stage 4 chronic kidney disease, or unspecified chronic kidney disease; N18.3 Chronic kidney disease, stage 3 (moderate); M62.82 Rhabdomyolysis; E86.0 Dehydration; E87.2 Acidosis; F10.21 Alcohol dependence, in remission; I73.9 Peripheral vascular disease, unspecified; Z86.19 Personal history of other infectious and parasitic diseases; F17.210 Nicotine dependence, cigarettes, uncomplicated
CPT/HCPCS: 70450; 80048; 80048 91; 82550; 82550 91; 82553; 82948; 84484; 84999; 85027; 85610; 93005; 94799; 99281; 99285; G0378; G0480; J0780; J1100; J1200; J1885; J7030

== ENCOUNTER 2018-04-11 07:13 | Inpatient (IN) | payer OTHER ==
[~2018-04-11] VITALS: Ht 188 cm; Wt 110.4 kg
[~2018-04-11 07:13] MED LIST changes: +OXYCODONE-APAP1 EACH PO; +VALSARTAN-HCTZ1 EAC1 PO; +VITAMIN D32000 UNI1 PO
[2018-04-11 08:03] LABS: APPEARANCE CLEAR ((CLEAR)); BILIRUBIN NEGATIVE; BLOOD SMALL; COLOR YELLOW ((YELLOW)); GLUCOSE (STRIP) NEGATIVE; KETONES NEGATIVE; LEUKOCYTES NEGATIVE; NITRITE NEGATIVE; PROTEIN (STRIP) 100; SPECIFIC GRAVITY 1.009 (1.000-1.030); UROBILINOGEN 0.2 MG/DL (0.2-1.0)
[2018-04-11 08:08] LABS: BACTERIA NONE SEEN /HPF; EPITHELIAL CELLS RARE /HPF; MUCUS NONE SEEN /LPF; RED BLOOD CELLS 0-5 /HPF (0-5); WHITE BLOOD CELLS 0-5 /HPF (0-5)
[2018-04-11 08:13] LABS: BASOPHIL (%) 0.5 % (0-1); BASOPHIL COUNT 0.1 K/uL (0-0.1); EOSINOPHIL (%) 2.1 % (0-5); EOSINOPHIL COUNT 0.2 K/uL (0-0.3); HEMATOCRIT 38.3 % (38.0-50.0); IMMATURE GRANULOCYTE (%) 0.3 % (0.0-0.7); LYMPHOCYTE (%) 31.6 % (15-42); LYMPHOCYTE COUNT 3.2 K/uL (1.0-2.8); MCH 26.1 PG (29.0-34.0); MCHC 33.9 G/DL (30.0-36.0); MCV 76.9 FL (86-99); MONOCYTE (%) 6.3 % (3-12); MONOCYTE COUNT 0.6 K/uL (0-0.8); NEUTROPHIL (%) 59.2 % (45-76); NEUTROPHIL COUNT 5.9 K/uL (1.8-6.4); NRBC (%) 0.2 /100 WBC (0-0); PLATELET COUNT 245 K/uL (156-360); RBC DIS.WIDTH-CV 14.9 % (11.8-14.6); RBC DIS.WIDTH-SD 40.8 % (39-53); RED BLOOD COUNT 4.98 M/uL (4.00-5.50)
[2018-04-11 08:19] LABS: AMPHETAMINE NEGATIVE (500 ng/mL); BARBITURATES NEGATIVE (200 ng/mL); BENZODIAZEPINES NEGATIVE (150 ng/mL); BUPRENORPHINE NEGATIVE (10 ng/mL); COCAINE PRESUMPTIVE POSITIVE (150 ng/mL); METHADONE NEGATIVE (200 ng/mL); METHAMPHETAMINE NEGATIVE (500 ng/mL); OPIATES (MORPHINE) NEGATIVE (100 ng/mL); OXYCODONE NEGATIVE (100 ng/mL); PHENCYCLIDINE NEGATIVE (25 ng/mL); PROPOXYPHENE NEGATIVE (300 ng/mL); THC CANNABINOIDS PRESUMPTIVE POSITIVE (50 ng/mL); TRICYCLIC ANTIDEPRESSANTS NEGATIVE (300 ng/mL)
[2018-04-11 08:39] LABS: TROP-I INTERPRETATION NEGATIVE; TROPONIN-I 0.06 ng/mL (0.0-0.30)
[2018-04-11 08:43] LABS: CHLORIDE 104 MEQ/L (99-109); CREATININE 2.1 MG/DL (0.6-1.3); GFR ESTIMATE (CALCULATED) 43 mL/min/ (58.99-99999); GLUCOSE 123 mg/dL (70-99); POTASSIUM 3.4 MEQ/L (3.7-5.4); SERUM ETHYL ALCOHOL 85 mg/dL; SODIUM 140 MEQ/L (136-147); UREA NITROGEN (BUN) 24 mg/dL (9-23)
[2018-04-11 11:49] LABS: TROP-I INTERPRETATION NEGATIVE; TROPONIN-I 0.05 ng/mL (0.0-0.30)
[2018-04-11] MEDS ORDERED: DESYREL100 MG PO (14:31)
[2018-04-11 18:36] VITALS: BP 177/100
[2018-04-11 18:39] VITALS: BP 177/100
[2018-04-11 21:48] VITALS: BP 135/85
[2018-04-12 07:57] VITALS: BP 157/91
[2018-04-12 12:10] VITALS: BP 134/74
[2018-04-12 15:26] VITALS: BP 139/75
[2018-04-13 09:25] VITALS: BP 168/91
[2018-04-13 11:38] VITALS: BP 167/94
[2018-04-13 16:03] VITALS: BP 182/95
[2018-04-14 08:07] VITALS: BP 195/91
[2018-04-14] MEDS ORDERED: CATAPRES0.2 MG PO (08:15)
[2018-04-14] MEDS ORDERED: DESYREL100 MG PO (08:15)
[2018-04-14] MEDS ORDERED: FOLIC ACID1 MG PO (08:15)
[2018-04-14] MEDS ORDERED: VITAMIN D32000 UNI1 PO (08:15)
[2018-04-14] MEDS ORDERED: NORVASC10 MG PO (08:15)
[2018-04-14 09:31] VITALS: BP 158/84
== END 2018-04-14 09:28 | disposition home or self-care (01) | DRG 882 ==
LOC: EME 07:13 → 1WEST 13:36 → EDOF 13:36 → ENRESERV 15:29 → 1WEST 18:24
PROVIDERS: Emergency Medicine
PROC: HZ2ZZZZ Detoxification Services for Substance Abuse Treatment (ICD-10-PCS; principal; 2018-04-12)
DX: F43.22 Adjustment disorder with anxiety (principal); F32.9 Major depressive disorder, single episode, unspecified; F14.10 Cocaine abuse, uncomplicated; F10.10 Alcohol abuse, uncomplicated; R45.851 Suicidal ideations; K21.9 Gastro-esophageal reflux disease without esophagitis; I10 Essential (primary) hypertension; N28.9 Disorder of kidney and ureter, unspecified
CPT/HCPCS: 71045; 74176; 80048; 81003; 84484; 84999; 85025; 90839; 93005; 97150 GO; 97165 GO; 99281; 99285; G0480; J1885; J2405